=== PATIENT | female | born 1995 | race Caucasian/White ===

== ENCOUNTER 2017-08-12 15:53 | Emergency (ER) | payer OTHER ==
[2017-08-12] MEDS: IBUPROFEN 600 MG TAB PO (17:13)
== END 2017-08-12 17:39 | disposition home or self-care (01) ==
LOC: M ED 15:53
DX: S80.11XA Contusion of right lower leg, initial encounter (principal); W22.8XXA Striking against or struck by other objects, initial encounter; Y92.59 Other trade areas as the place of occurrence of the external cause; Y99.0 Civilian activity done for income or pay
CPT/HCPCS: 73590

== ENCOUNTER → 2018-05-01 | Outpatient (CLI) | payer BC ==
[2018-05-01 17:55] LABS: MONO REFLEX EBV COMP NEGATIVE (NEGATIVE)
[2018-05-01 18:01] LABS: BASO % 0.3 % (0.0-1.0); EOS # 0.1 10^3/uL (0.0-0.50); EOS % 1.1 % (0.0-3.0); HEMATOCRIT 40.1 % (36.0-47.0); HEMOGLOBIN 13.1 g/dl (12.0-15.5); LYMPH # 1.9 10^3/uL (1.5-6.5); LYMPH % 28.8 % (24.0-44.0); MEAN CORPUSCULAR HEMOGLOBIN 28.5 pg (27.0-33.0); MEAN CORPUSCULAR HGB CONC 32.7 g/dl (32.0-36.5); MEAN CORPUSCULAR VOLUME 87.2 fl (80.0-96.0); MONO # 0.5 10^3/uL (0.0-0.8); MONO % 7.4 % (0.0-5.0); NEUTROPHILS # 4.1 10^3/uL (1.8-7.7); NEUTROPHILS % 62.1 % (36.0-66.0); PLATELET COUNT, AUTOMATED 368 10^3/uL (150-450); WHITE BLOOD COUNT 6.6 10^3/uL (4.0-10.0)
[2018-05-05 00:06] LABS: EBV AB TO NUCLEAR ANTIGEN >600.0 U/mL (0.0-17.9); EBV VIRAL CAPSID AG IgM <36.0 U/mL (0.0-35.9)
== END ==
LOC: M LABDRWAD 15:30
PROVIDERS: ATTEND Physician Assistant Medical
DX: R59.0 Localized enlarged lymph nodes (principal)

== ENCOUNTER 2018-07-21 01:02 | Inpatient (IN) | payer BC ==
[~2018-07-21] VITALS: Ht 163.8 cm; Wt 69.2 kg
[2018-07-21 01:44] LABS: HEMOGLOBIN 12.3 g/dl (12.0-15.5); MEAN CORPUSCULAR HEMOGLOBIN 29.6 pg (27.0-33.0); MEAN CORPUSCULAR HGB CONC 33.2 g/dl (32.0-36.5); MEAN CORPUSCULAR VOLUME 89.2 fl (80.0-96.0); PLATELET COUNT, AUTOMATED 299 10^3/uL (150-450); RED BLOOD COUNT 4.15 10^6/uL (4.00-5.40)
[2018-07-21 01:59] LABS: HCG, SERUM QUALITATIVE NEGATIVE (NEGATIVE)
[2018-07-21 02:07] LABS: AMPHETAMINES LEVEL URINE NEGATIVE (NEGATIVE); BARBITURATES URINE NEGATIVE (NEGATIVE); BENZODIAZEPINES URINE NEGATIVE (NEGATIVE); CANNABINOIDS URINE NEGATIVE (NEGATIVE); COCAINE METABOLITE URINE NEGATIVE (NEGATIVE); METHADONE URINE NEGATIVE (NEGATIVE); OPIATES URINE NEGATIVE (NEGATIVE); PHENCYCLIDINE URINE NEGATIVE (NEGATIVE)
[2018-07-21 02:15] LABS: ACETAMINOPHEN LEVEL < 2.0 UG/ML (10.0-30.0); ALBUMIN 3.8 GM/DL (3.2-5.2); ALT/SGPT 24 U/L (12-78); BILIRUBIN,DIRECT < 0.1 MG/DL (0.0-0.2); BILIRUBIN,TOTAL 0.1 MG/DL (0.2-1.0); BLOOD UREA NITROGEN 5 MG/DL (7-18); CALCIUM LEVEL 8.2 MG/DL (8.5-10.1); CARBON DIOXIDE LEVEL 28 MEQ/L (21-32); CHLORIDE LEVEL 111 MEQ/L (98-107); CREATININE FOR GFR 0.56 MG/DL (0.55-1.30); ETHYL ALCOHOL (ETHANOL) 0.183 % (0.000-0.010); GLOMERULAR FILTRATION RATE > 60.0 (>60); GLUCOSE, FASTING 92 MG/DL (70-100); POTASSIUM SERUM 3.6 MEQ/L (3.5-5.1); SALICYLATE LEVEL < 1.7 MG/DL (5.0-30.0); SODIUM LEVEL 144 MEQ/L (136-145); THYROID STIMULATING HORMONE 0.814 uIU/ML (0.358-3.740); TOTAL PROTEIN 7.4 GM/DL (6.4-8.2)
[2018-07-21] MEDS ORDERED: MAALOX 30 ML SUSP *UDC PO PRN (13:00)
[2018-07-21] MEDS ORDERED: ACETAMINOPHEN TAB 650MG DOSE (2X325MG) PO PRN (13:00)
[2018-07-21] MEDS ORDERED: MOM 30ML SUSPENSION UDC PO PRN (13:00)
[2018-07-21 15:22] VITALS: BP 136/87
[2018-07-22 06:37] VITALS: BP 117/58
--- NOTE | 2018-07-22 08:06 | CR.PDOC ---
General Date of Consultation: Jul 21, 2018 Referring Provider: DEDE POND MD Consultation REASON FOR CONSULTATION/CHIEF COMPLAINT: medical management HISTORY OF PRESENT ILLNESS: 23 yo homosexual female being seen for medical evaluation. Patient states increased stress has caused her menses to become light in flow and duration for past 2 months (currently last 2 days and light flow). ALLERGIES: Please see below. HOME MEDICATIONS: PRN ibuprofen for menstrual cramps PAST MEDICAL HISTORY: Healthy - no DM, no HTN, no hypothyoidism FDLMP: presently on menses - lasts 2 days, light; PAST SURGICAL HISTORY: none FAMILY HISTORY: Father health history unknown Mother with DM, Ovarian Cancer and HTN SOCIAL HISTORY: Significant other with recent breakup Smokes 1 cigar a month; binge EtOH use 1-2 x month REVIEW OF SYSTEMS:10 comprehensive systems reviewed and negative PHYSICAL EXAMINATION: VITAL SIGNS: Please see below. GENERAL APPEARANCE: NAD, AAOx3 HEENT: BEATRIS/EOMI; no thyromegally, oral mucosa moist, no bruit RESPIRATORY: LCTA no W/R/R; no CVA or spinal tenderness CARDIOVASCULAR: RRR no murmur ABDOMEN: Soft NT ND NABS EXTREMITIES: no edema NEUROLOGICAL: no gross motor or sensory deficits LABORATORY DATA: Please see below. ASSESSMENT/PLAN: 1. mood disorder - management by psychiatry 2. change in menstrual - probably stress related, but if not already done within past 6 months, suggest checking TSH (will defer to psychiatry if labs needed) Thank you for allowing the hospitalist team to participate in the care of this patient. At this time she appears medically stable and will sign off. Please contact us if further assistance needed Vital Signs/I&O Vital Signs Date Time Temp Pulse Resp B/P (MAP) Pulse Ox O2 Delivery O2 Flow Rate FiO2 07/21/18 15:22 98.3 67 18 136/87 (103) 99 07/21/18 01:07 Room Air Laboratory Data Labs 24H Laboratory Tests 2 07/21/18 01:33: Nucleated Red Blood Cells % (auto) 0.0, Anion Gap 5L, Glomerular Filtration Rate > 60.0, Calcium Level 8.2L, Aspartate Amino Transf (AST/SGOT) 13, Alanine Aminotransferase (ALT/SGPT) 24, Alkaline Phosphatase 68, Total Bilirubin 0.1L, Direct Bilirubin < 0.1, Total Protein 7.4, Albumin 3.8, Albumin/Globulin Ratio 1.06, Thyroid Stimulating Hormone (TSH) 0.814, Human Chorionic Gonadotropin, Qual NEGATIVE, Salicylates Level < 1.7L, Urine Amphetamines Screen NEGATIVE, Urine Benzodiazepines Screen NEGATIVE, Urine Opiates Screen NEGATIVE, Urine Methadone Screen NEGATIVE, Acetaminophen Level < 2.0L, Urine Barbiturates Screen NEGATIVE, Urine Phencyclidine Screen NEGATIVE, Urine Cocaine Metabolite Screen N EGATIVE, Urine Cannabinoids Screen NEGATIVE, Ethyl Alcohol Level 0.183H CBC/BMP Laboratory Tests 07/21/18 01:33 Red Blood Count 4.15, Mean Corpuscular Volume 89.2, Mean Corpuscular Hemoglobin 29.6, Mean Corpuscular Hemoglobin Concent 33.2, Red Cell Distribution Width 12.3 Allergies Coded Allergies: No Known Allergies (Unverified , 07/21/18) Home Medications No Active Prescriptions or Reported Meds OLAMIDE HERNANDEZ DO Jul 21, 2018 19:44
[2018-07-22] MEDS ORDERED: FLUoxetine 10 MG CAP PO ONE (12:00)
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
[2018-07-22 18:00] VITALS: BP 99/58
[2018-07-23 06:26] VITALS: BP 119/59
[2018-07-23] MEDS: FLUoxetine 10 MG CAP PO SCH (09:41)
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
[2018-07-23] MEDS: hydrOXYzine 25 MG TAB PO PRN (17:46)
[2018-07-23 18:00] VITALS: BP 113/56
[2018-07-24 06:27] VITALS: BP 105/53
[2018-07-24] MEDS: FLUoxetine 10 MG CAP PO SCH (08:48)
[2018-07-24] MEDS: hydrOXYzine 25 MG TAB PO PRN (17:00)
[2018-07-24 18:00] VITALS: BP 118/51
--- NOTE | 2018-07-24 18:28 | MHIPNPDOC ---
[facility] Progress Note Progress Note DATE OF SERVICE: 07/24/18 HISTORY: Patient is a 23 -year-old , female, with no previous psych history who was brought to ED after pt's friend called them stating that the pt had messaged her on Facebook that she wanted to use a gun to kill herself secondary to depression and current divorce, drinking alcohol to self medicate mood (bal 0.183 in ED). ED spoke with PD who found a text picture to the friend of pt with a shot gun and shotgun shell along with the message "I'm sorry." Per ED, PD stated that pt did endorse SI with plan to shoot herself to them. PD searched pt's home and found a shot gun hiding under her bed and several empty beer cans. The gun is documented by ED as being removed from home by PD. After PD found the gun PD told ED that pt stopped cooperating and answering questions. In ED, pt reportedly angry and requesting to be discharged, no willing to cooperate with interview. VITAL SIGNS: See below. NEW TEST RESULTS: See below. CURRENT MEDICATIONS: See below. MENTAL STATUS EXAMINATION: General Appearance: well groomed, appears stated age, hospital scubs/clothing, other (more masculine styling then feminine) Build: average Demeanor: average, cooperative, a little anxious Eye Contact: sometimes it's good, mostly all the time, looking down Activity: average Behavior: cooperative, pleasant Speech: clear, spontaneous, normal volume, Mood: less depressed and anxious Mood "Much better" Affect: less constricted, congruent, less anxious Thought Process: logical/linea Thought Content (Delusions): none reported, denies SI, HI, AVH Thought Content (Other): none reported, appropriate Thought Content (Aggressive): none reported Perception (Hallucinations): none reported Perception (Other): none reported Cognition (Impairment of): none reported Cognition(Intelligence Est.): average Oriented: Awake, Alert, Oriented times three Insight: fair Judgment: Fair Psychosis: Denies DIAGNOSES: Adjustment d/o with depressed mood alcohol use d/o ASSESSMENT: Patient says now she feels better, she finds groups helpful. She knows what she has to do, to move on, get out of here, she would like to go to a place where there's a lot of sun. "I need the sun in my life". She says, almost tearfull "she can have it all, I just wanna be happy, I'm leaving it to her" (talking about the house she and her had recently bought). she says she likes the anger management group because she thinks it applies to her. She requested vitamin D, she was taking it before, she felt it helped her, I ordered it x 2 /day. MANAGEMENT PLAN: continue plan prozac 10mg daily for mood atarax 25mg q6hr prn anxiety TIME SPENT: 20 minutes. Vital Signs Vital Signs Date Time Temp Pulse Resp B/P (MAP) Pulse Ox O2 Delivery O2 Flow Rate FiO2 07/24/18 18:00 98.2 61 16 118/51 (73) 07/21/18 15:22 99 07/21/18 01:07 Room Air Current Medications Current Medications Acetaminophen (Tylenol Tab) 650 mg Q6HP PRN PO HEADACHE or DISCOMFORT Last administered on 07/23/18at 09:41; Start 07/21/18 at 13:00 Al Hydrox/Mg Hydrox/Simethicone (Mylanta) 30 ml Q4HP PRN PO HEARTBURN/INDIGESTION; Start 07/21/18 at 13:00 Fluoxetine HCl (PROzac) 10 mg DAILY PO Last administered on 07/24/18at 08:48; Start 07/23/18 at 09:00 Home Med (Med Rec Complete!) ASDIRECTED XX ; Start 07/21/18 at 12:15; Stop 07/21/18 at 12:15; Status DC Hydroxyzine HCl (Atarax) 25 mg Q6HP PRN PO ANXIETY Last administered on 07/24/18at 17:00; Start 07/22/18 at 12:00 Magnesium Hydroxide (Milk Of Magnesia) 30 ml DAILYPRN PRN PO CONSTIPATION; Start 07/21/18 at 13:00 Trazodone HCl (Desyrel) 50 mg QHSP PRN PO INSOMNIA; Start 07/22/18 at 12:00 Allergies Coded Allergies: No Known Allergies (Unverified , 07/21/18) DEDE POND MD Jul 24, 2018 18:28
[2018-07-24] MEDS: ASCORBIC ACID 250 MG TAB PO SCH (21:38)
[2018-07-24] MEDS: VITAMIN D (CHOLECALCIFEROL) 400 INTERNATIONAL UNITS TAB PO SCH (21:38)
[2018-07-24] MEDS: traZODone 50 MG TAB PO PRN (22:38)
[2018-07-25 06:18] VITALS: BP 100/52
[2018-07-25] MEDS: FLUoxetine 10 MG CAP PO SCH (09:00)
[2018-07-25] MEDS: VITAMIN D (CHOLECALCIFEROL) 400 INTERNATIONAL UNITS TAB PO SCH ×2 (09:00→21:46)
[2018-07-25] MEDS: ASCORBIC ACID 250 MG TAB PO SCH ×2 (09:00→21:46)
[2018-07-25 18:01] VITALS: BP 114/56
--- NOTE | 2018-07-25 21:50 | MHIPNPDOC ---
[facility] Progress Note Progress Note DATE OF SERVICE: 07/25/18 HISTORY: Patient is a 23 -year-old , female, with no previous psych history who was brought to ED after pt's friend called them stating that the pt had messaged her on Facebook that she wanted to use a gun to kill herself secondary to depression and current divorce, drinking alcohol to self medicate mood (bal 0.183 in ED). ED spoke with PD who found a text picture to the friend of pt with a shot gun and shotgun shell along with the message "I'm sorry." Per ED, PD stated that pt did endorse SI with plan to shoot herself to them. PD searched pt's home and found a shot gun hiding under her bed and several empty beer cans. The gun is documented by ED as being removed from home by PD. After PD found the gun PD told ED that pt stopped cooperating and answering questions. In ED, pt reportedly angry and requesting to be discharged, no willing to cooperate with interview. VITAL SIGNS: See below. NEW TEST RESULTS: See below. CURRENT MEDICATIONS: See below. MENTAL STATUS EXAMINATION: General Appearance: well groomed, appears stated age, hospital scubs/clothing, other (more masculine styling then feminine) Build: average Demeanor: average, cooperative, a little anxious Eye Contact: sometimes it's good, mostly all the time, looking down Activity: average Behavior: cooperative, pleasant Speech: clear, spontaneous, normal volume, Mood: less depressed and anxious Mood "Much better" Affect: less constricted, congruent, less anxious Thought Process: logical/linea Thought Content (Delusions): none reported, denies SI, HI, AVH Thought Content (Other): none reported, appropriate Thought Content (Aggressive): none reported Perception (Hallucinations): none reported Perception (Other): none reported Cognition (Impairment of): none reported Cognition(Intelligence Est.): average Oriented: Awake, Alert, Oriented times three Insight: fair Judgment: Fair Psychosis: Denies DIAGNOSES: Adjustment d/o with depressed mood alcohol use d/o ASSESSMENT: The patient reports feeling better, she has been more sociable in the Unit, interacting with other patients. She is future orientated, she says, once again that attending groups has been very helpful. Patient has been pleasant and cooperative, seems to be respondign well to medications. Will continue treatment as per Dr. Wong MANAGEMENT PLAN: continue plan prozac 10mg daily for mood atarax 25mg q6hr prn anxiety TIME SPENT: 20 minutes. Vital Signs Vital Signs Date Time Temp Pulse Resp B/P (MAP) Pulse Ox O2 Delivery O2 Flow Rate FiO2 07/25/18 18:01 99.1 63 16 114/56 (75) 07/21/18 15:22 99 07/21/18 01:07 Room Air Current Medications Current Medications Acetaminophen (Tylenol Tab) 650 mg Q6HP PRN PO HEADACHE or DISCOMFORT Last administered on 07/23/18 09:41; Start 07/21/18 at 13:00 Al Hydrox/Mg Hydrox/Simethicone (Mylanta) 30 ml Q4HP PRN PO HEARTBURN/INDIGESTION; Start 07/21/18 at 13:00 Ascorbic Acid (Vitamin C) 250 mg BID PO Last administered on 07/25/18at 21:46; Start 07/24/18 at 21:00 Fluoxetine HCl (PROzac) 10 mg DAILY PO ; Start 07/26/18 at 09:00 Fluoxetine HCl (PROzac) 10 mg DAILY PO Last administered on 07/25/18at 09:00; Start 07/23/18 at 09:00; Stop 07/25/18 at 12:31; Status DC Fluoxetine HCl (PROzac) 20 mg DAILY PO ; Start 07/26/18 at 09:00; Stop 07/26/18 at 09:00; Status DC Home Med (Med Rec Complete!) ASDIRECTED XX ; Start 07/21/18 at 12:15; Stop 07/21/18 at 12:15; Status DC Hydroxyzine HCl (Atarax) 25 mg Q6HP PRN PO ANXIETY Last administered on 07/24/18at 17:00; Start 07/22/18 at 12:00 Magnesium Hydroxide (Milk Of Magnesia) 30 ml DAILYPRN PRN PO CONSTIPATION; Start 07/21/18 at 13:00 Trazodone HCl (Desyrel) 50 mg QHSP PRN PO INSOMNIA Last administered on 07/24/18at 22:38; Start 07/22/18 at 12:00 Vitamin D (Vitamin D) 400 units BID PO Last administered on 07/25/18at 21:46; Start 07/24/18 at 21:00 Allergies Coded Allergies: No Known Allergies (Unverified , 07/21/18) DEDE POND MD Jul 25, 2018 21:50
[2018-07-26] MEDS: traZODone 50 MG TAB PO PRN (01:16)
[2018-07-26 06:29] VITALS: BP 112/52
[2018-07-26] MEDS: FLUoxetine 10 MG CAP PO SCH (08:52)
[2018-07-26] MEDS: ASCORBIC ACID 250 MG TAB PO SCH ×2 (08:52→21:13)
[2018-07-26] MEDS: VITAMIN D (CHOLECALCIFEROL) 400 INTERNATIONAL UNITS TAB PO SCH ×2 (08:52→21:13)
[2018-07-26] MEDS ORDERED: FLUoxetine 10 MG CAP PO SCH (09:00)
--- NOTE | 2018-07-26 09:52 | MHIPNPDOC ---
[facility] Progress Note Progress Note DATE OF SERVICE: 07/26/18 HISTORY: Patient is a 23 -year-old , female, with no previous psych history who was brought to ED after pt's friend called them stating that the pt had messaged her on Facebook that she wanted to use a gun to kill herself secondary to depression and current divorce, drinking alcohol to self medicate mood (bal 0.183 in ED). ED spoke with PD who found a text picture to the friend of pt with a shot gun and shotgun shell along with the message "I'm sorry." Per ED, PD stated that pt did endorse SI with plan to shoot herself to them. PD searched pt's home and found a shot gun hiding under her bed and several empty beer cans. The gun is documented by ED as being removed from home by PD. After PD found the gun PD told ED that pt stopped cooperating and answering questions. In ED, pt reportedly angry and requesting to be discharged, no willing to cooperate with interview. VITAL SIGNS: See below. NEW TEST RESULTS: See below. CURRENT MEDICATIONS: See below. MENTAL STATUS EXAMINATION: General Appearance: well groomed, appears stated age, hospital scrubs/clothing, other (more masculine styling then feminine) Build: average Demeanor: average, cooperative Eye Contact: good Activity: average Behavior: cooperative, pleasant Speech: clear, spontaneous, normal volume, Mood: less depressed and anxious Mood "good" Affect: less constricted, congruent, less anxious Thought Process: logical/linea Thought Content (Delusions): none reported, denies SI, HI, AVH Thought Content (Other): none reported, appropriate Thought Content (Aggressive): none reported Perception (Hallucinations): none reported Perception (Other): none reported Cognition (Impairment of): none reported Cognition(Intelligence Est.): average Oriented: Awake, Alert, Oriented times three Insight: fair Judgment: Fair Psychosis: Denies DIAGNOSES: Adjustment d/o with depressed mood alcohol use d/o ASSESSMENT: The patient reports feeling better, as her sleep has improved greatly to more regular and her about 7-8hrs nightly that is making her mood, anxiety, energy better. . She is future orientated to going to tech school. She is attending groups and finds them very helpful. Patient has been pleasant and cooperative, seems to be responding well to medications that she is tolerating them well. She denies SI/HI, hallucinations, delusions. Feels safe safe here. MANAGEMENT PLAN: continue plan prozac 10mg daily for mood atarax 25mg q6hr prn anxiety TIME SPENT: 30 minutes. Vital Signs Vital Signs Date Time Temp Pulse Resp B/P (MAP) Pulse Ox O2 Delivery O2 Flow Rate FiO2 07/26/18 06:29 98.6 50 14 112/52 (72) 07/21/18 15:22 99 07/21/18 01:07 Room Air Current Medications Current Medications Acetaminophen (Tylenol Tab) 650 mg Q6HP PRN PO HEADACHE or DISCOMFORT Last administered on 07/23/18at 09:41; Start 07/21/18 at 13:00 Al Hydrox/Mg Hydrox/Simethicone (Mylanta) 30 ml Q4HP PRN PO HEARTBURN/INDIGESTION; Start 07/21/18 at 13:00 Ascorbic Acid (Vitamin C) 250 mg BID PO Last administered on 07/25/18at 21:46; Start 07/24/18 at 21:00 Fluoxetine HCl (PROzac) 10 mg DAILY PO ; Start 07/26/18 at 09:00 Fluoxetine HCl (PROzac) 10 mg DAILY PO Last administered on 07/25/18at 09:00; Start 07/23/18 at 09:00; Stop 07/25/18 at 12:31; Status DC Fluoxetine HCl (PROzac) 20 mg DAILY PO ; Start 07/26/18 at 09:00; Stop 07/26/18 at 09:00; Status DC Home Med (Med Rec Complete!) ASDIRECTED XX ; Start 07/21/18 at 12:15; Stop 07/21/18 at 12:15; Status DC Hydroxyzine HCl (Atarax) 25 mg Q6HP PRN PO ANXIETY Last administered on 07/24/18at 17:00; Start 07/22/18 at 12:00 Magnesium Hydroxide (Milk Of Magnesia) 30 ml DAILYPRN PRN PO CONSTIPATION; Start 07/21/18 at 13:00 Trazodone HCl (Desyrel) 50 mg QHSP PRN PO INSOMNIA Last administered on 07/26/18at 01:16; Start 07/22/18 at 12:00 Vitamin D (Vitamin D) 400 units BID PO Last administered on 07/25/18at 21:46; Start 07/24/18 at 21:00 Allergies Coded Allergies: No Known Allergies (Unverified , 07/21/18) ASHLEY ARORA DO Jul 26, 2018 9:00 am
[2018-07-26 18:00] VITALS: BP 133/58
[2018-07-26] MEDS: hydrOXYzine 25 MG TAB PO PRN (21:13)
[2018-07-27 06:28] VITALS: BP 103/59
[2018-07-27] MEDS: VITAMIN D (CHOLECALCIFEROL) 400 INTERNATIONAL UNITS TAB PO SCH (08:44)
[2018-07-27] MEDS: ASCORBIC ACID 250 MG TAB PO SCH (08:44)
[2018-07-27] MEDS: FLUoxetine 10 MG CAP PO SCH (08:44)
[2018-07-27] MEDS ORDERED: TRAZ-252 PO ×2 (08:47→10:29)
[2018-07-27] MEDS ORDERED: FLUO10CA8 PO ×2 (08:47→10:29)
[2018-07-27] MEDS ORDERED: HYDR-3363 PO ×2 (08:47→10:29)
--- NOTE | 2018-07-27 08:47 | MHDSPDOC ---
[facility] Discharge Summary Discharge Summary DATE OF ADMISSION: Jul 21, 2018 at 12:49 pm DATE OF DISCHARGE: Jul 27, 2018 DISCHARGE DIAGNOSES: Adjustment d/o with depressed mood alcohol use d/o REASON FOR ADMISSION: Patient is a 23 -year-old , female, with no previous psych history who was brought to ED after pt's friend called them stat ing that the pt had messaged her on Facebook that she wanted to use a gun to kill herself secondary to depression and current divorce, drinking alcohol to self medicate mood (bal 0.183 in ED). ED spoke with PD who found a text picture to the friend of pt with a shot gun and shotgun shell along with the message "I'm sorry." Per ED, PD stated that pt did endorse SI with plan to shoot herself to them. PD searched pt's home and found a shot gun hiding under her bed and several empty beer cans. The gun is documented by ED as being removed from home by PD. After PD found the gun PD told ED that pt stopped cooperating and answering questions. In ED, pt reportedly angry and requesting to be discharged, no willing to cooperate with interview. CONSULTANTS INVOLVED: none TREATMENT AND PROGRESS ON THE UNIT : Pt was admitted to [facility], seen for psychiatric assessment and started on [id number] daily for mood and anxiety. She was provided vistaril 25mg q6hr prn anxiety and trazodone 50mg qhs prn insomnia. Pt found her medications beneficial and tolerated them well. She attended groups daily during her stay. Her symptoms improved with treatment. On day of discharge she denied depression, anxiety, insomnia, SI/HI, hallucinations, delusions. She was discharged home with her best friend with follow-up [facility]. She felt safe for discharge. DISCHARGE ASSESSMENT: Pt seen and states that her mood is good and she's looking forward to returning home today. She appears euthymic and bright. States she's being social on the milieu which is beneficial. States she slept well last night. Feels she is tolerating her medications and they're beneficial. She is attending groups and finding them helpful. 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 She denies depression, anxiety, insomnia, SI/HI, hallucinations, delusions. Pt feels safe to be discharged home. MENTAL STATUS EXAMINATION ON DISCHARGE: General Appearance: well groomed, appears stated age, own clothing, other (more masculine styling then feminine) Build: average Demeanor: average, cooperative Eye Contact: good Activity: average Behavior: cooperative, pleasant Speech: clear, spontaneous, normal volume, Mood: euthymic, full, bright Mood "good" Affect: euthymic, congruent Thought Process: logical/linear Thought Content (Delusions): none reported, denies SI, HI, AVH Thought Content (Other): none reported, appropriate Thought Content (Aggressive): none reported Perception (Hallucinations): none reported Perception (Other): none reported Cognition (Impairment of): none reported Cognition(Intelligence Est.): average Oriented: Awake, Alert, Oriented times three Insight: good Judgment: good Psychosis: Denies MEDICATIONS ON DISCHARGE: prozac 10mg daily for mood atarax 25mg q6hr prn anxiety PLAN/FOLLOWUP ARRANGEMENTS: D/c home w/follow-up at [facility]. The amount of time spent in the coordination of care for this patient was approximately 30 minutes. Vital Signs/I&Os Vital Signs Date Time Temp Pulse Resp B/P (MAP) Pulse Ox O2 Delivery O2 Flow Rate FiO2 07/27/18 06:28 97.9 52 12 103/59 (74) 07/21/18 15:22 99 07/21/18 01:07 Room Air Medications Scheduled Fluoxetine Hcl (Fluoxetine HCl) 10 Mg Capsule, 10 MG PO DAILY for mood, #10 Scheduled PRN Hydroxyzine HCl (Hydroxyzine HCl) 25 Mg Tablet, 25 MG PO Q6HP PRN for ANXIETY, #30 Trazodone HCl (Trazodone HCl) 50 Mg Tablet, 50 MG PO QHSP PRN for INSOMNIA, #10 Allergies Coded Allergies: No Known Allergies (Unverified , 07/21/18) ASHLEY ARORA DO Jul 27, 2018 8:47 am
== END 2018-07-27 10:30 | disposition home or self-care (01) | DRG 754 ==
LOC: M ED 01:02 → M ED INP 12:49 → M PSY 15:15
PROVIDERS: ADMIT Psychiatry & Neurology Psychiatry; ATTEND Psychiatry & Neurology Psychiatry
DX: F43.21 Adjustment disorder with depressed mood (principal); F10.10 Alcohol abuse, uncomplicated; F17.200 Nicotine dependence, unspecified, uncomplicated